=== PATIENT | male | born 1990 | race Caucasian/White ===

== ENCOUNTER 2016-12-31 20:09 | Emergency (ER) | payer OTHER ==
[2017-01-01] MEDS ORDERED: HYDROCODONE/ACETAMINOPHEN 5/325MG TABLET ONE (00:35)
[2017-01-01] MEDS ORDERED: PREDNISONE 20 MG TABLET ONE (00:35)
== END 2017-01-01 00:46 | disposition home or self-care (01) ==
LOC: ED 20:09
DX: K50.90 Crohn's disease, unspecified, without complications (principal); F17.210 Nicotine dependence, cigarettes, uncomplicated
CPT/HCPCS: 99283 ×2; J7512; A9270